=== PATIENT | male | born 1995 | race African-American/Black ===

== ENCOUNTER → 2021-04-24 | Outpatient (CLI) | payer OTHER ==
[2021-04-24 13:55] LABS: FREE T4 0.83 NG/DL (0.76-1.46); THYROID STIMULATING HORMONE 3.64 uIU/ML (0.358-3.740)
[2021-04-29 08:08] LABS: TESTOSTERONE %FREE+WEAKLY BOUN 23.4 % (9.0-46.0); TESTOSTERONE FREE+WEAKLY BOUND 54.8 ng/dL (40.0-250.0); TESTOSTERONE TOTAL 234 ng/dL (264-916)
== END ==
LOC: M PLALAB 10:47
PROVIDERS: ATTEND Nurse Practitioner Family
DX: E03.9 Hypothyroidism, unspecified (principal); E29.1 Testicular hypofunction

== ENCOUNTER 2023-07-11 22:25 | Emergency (ER) | payer OTHER ==
[~2023-07-11] VITALS: Ht 188 cm; Wt 113.5 kg
[2023-07-12] MEDS ORDERED: NS 1,000 ML IV ONE ×2 (05:35→06:45)
[2023-07-12] MEDS ORDERED: ONDANSETRON 4MG 2ML VIAL IV ONE (05:35)
[2023-07-12 06:14] LABS: BASO % 0.4 % (0.0-1.0); EOS # 0.2 10^3/uL (0.0-0.5); EOS % 1.8 % (0.0-3.0); HEMATOCRIT 40.9 % (42.0-52.0); HEMOGLOBIN 14.6 g/dl (13.5-17.5); LYMPH % 24.5 % (24.0-44.0); MEAN CORPUSCULAR HEMOGLOBIN 31.3 pg (27.0-33.0); MEAN CORPUSCULAR HGB CONC 35.7 g/dl (32.0-36.5); MEAN CORPUSCULAR VOLUME 87.8 fl (80.0-96.0); MONO # 0.8 10^3/uL (0.0-0.8); MONO % 9.6 % (2.0-8.0); NEUTROPHILS # 5.2 10^3/uL (1.5-8.5); NEUTROPHILS % 63.5 % (36.0-66.0); PLATELET COUNT, AUTOMATED 149 10^3/uL (150-450); RED BLOOD COUNT 4.66 10^6/uL (4.30-6.10); WHITE BLOOD COUNT 8.2 10^3/uL (4.0-10.0)
[2023-07-12 06:27] LABS: LIPASE 24 U/L (12-53)
[2023-07-12 06:29] LABS: ALBUMIN 4.2 G/DL (3.2-5.2); ALKALINE PHOSPHATASE 49 U/L (46-116); ALT/SGPT 37 U/L (7.0-40); AST/SGOT 60 U/L (<34); BILIRUBIN,TOTAL 0.8 MG/DL (0.3-1.2); BLOOD UREA NITROGEN 20 MG/DL (9-23); CALCIUM LEVEL 9.2 MG/DL (8.5-10.1); CARBON DIOXIDE LEVEL 26 MMOL/L (20-31); CHLORIDE LEVEL 105 MMOL/L (98-107); CREATININE FOR GFR 0.96 MG/DL (0.70-1.30); GLOMERULAR FILTRATION RATE > 60.0 (>60); GLUCOSE, FASTING 97 MG/DL (60-100); POTASSIUM SERUM 3.9 MMOL/L (3.5-5.1); SODIUM LEVEL 136 MMOL/L (136-145)
[2023-07-12] MEDS ORDERED: ONDA4TAB6 PO (07:06)
[2023-07-12 08:22] VITALS: BP 140/69; TEMP 98.5; O2SAT 98
== END 2023-07-12 08:25 | disposition home or self-care (01) ==
LOC: M ED 22:25
DX: K52.9 Noninfective gastroenteritis and colitis, unspecified (principal); F17.200 Nicotine dependence, unspecified, uncomplicated; Z79.83 Long term (current) use of bisphosphonates
CPT/HCPCS: 80053; 83690; 85025; 96361; 96374; 99284; J2405

== ENCOUNTER → 2023-10-04 | Outpatient (CLI) | payer OTHER ==
[~2023-10-04] MED LIST: ONDA4TAB6 PO
[2023-10-04 15:43] LABS: FREE T4 1.09 NG/DL (0.89-1.76)
[2023-10-04 15:44] LABS: THYROID STIMULATING HORMONE 5.205 uIU/ML (0.55-4.78)
[2023-10-04 15:47] LABS: TOTAL 25(OH) VITAMIN D 27.4 NG/ML (20.0-100.0)
== END ==
LOC: M PLALAB 11:46
PROVIDERS: ATTEND Internal Medicine Endocrinology, Diabetes & Metabolism
DX: E29.1 Testicular hypofunction (principal); E03.9 Hypothyroidism, unspecified; E55.9 Vitamin D deficiency, unspecified